=== PATIENT | female | born 1950 | race Caucasian/White ===

== ENCOUNTER 2019-06-05 11:43 | Outpatient (CLI) | payer MEDICARE | END 2019-06-05 23:59 | disposition home or self-care (01) | LOC: CFH 11:43 | PROVIDERS: ATTEND Internal Medicine | DX: Z12.31 Encounter for screening mammogram for malignant neoplasm of breast (principal); N63.0 Unspecified lump in unspecified breast; N64.89 Other specified disorders of breast | CPT/HCPCS: 77067 ==

== ENCOUNTER → 2019-06-25 | Outpatient (CLI) | payer MEDICARE | END | disposition home or self-care (01) | LOC: CFH 13:03 | PROVIDERS: ATTEND Internal Medicine | DX: N63.22 Unspecified lump in the left breast, upper inner quadrant (principal); N60.82 Other benign mammary dysplasias of left breast; N64.89 Other specified disorders of breast | CPT/HCPCS: 76642; 77065; G0279 ==